=== PATIENT | male | born 1990 | race Caucasian/White ===

== ENCOUNTER 2022-06-30 10:07 | Emergency (ER) | payer MEDICAID, SELFPAY ==
[2022-06-30] VITALS (30 sets, daily range): BP systolic 152–188; BP diastolic 100–118; PULSE 88–111; RESP 18–20; TEMP 36.4; O2SAT 94–100; BMI 29.9
--- NOTE | 2022-06-30 10:31 | CT_ITS ---
WS: [id number] CT ABDOMEN AND PELVIS WITH CONTRAST HISTORY: LLQ abdominal pain, n/v, blood in stool TECHNIQUE: Imaging performed of the abdomen and pelvis with IV contrast. Single phase imaging of the abdomen. Coronal and sagittal reformats are submitted. All CT scans at [facility] use at [address] one of these dose optimization techniques: automated exposure control; mA and/or kV adjustment per patient size (includes targeted exams where dose is matched to clinical indication); or iterative re construction. IV CONTRAST: Omnipaque 350; 100 mL IV. Oral contrast: No DLP: 763.83 mGy.cm COMPARISON: None available. Lower thorax: Lung bases are clear. Heart is normal size. No hiatal hernia. Liver/biliary system: Normal size with no intrahepatic dilatation. Mild focal steatosis along the fal ciform ligament. Gallbladder: Normal. No gallstones or wall thickening. No pericholecystic fluid. Pancreas: Normal size pancreas and pancreatic duct. No adjacent inflammation. Spleen: Normal size spleen. No mass or infarct. Adrenal glands: Normal. Right kidney: Normal. Left kidney: Normal. Aorta: Normal. Lymphadenopathy: None. Free fluid: None. GI tract: Normal appearance of the stomach and small bowel. Normal appendix. No pericolonic inflammat ion. No obstruction or mass. There is some very minimal wall thickening involving the sigmoid colon w ith a few diverticula. The lumen is narrowed. No adjacent pericolonic inflammation. Abdominal wall: Fat containing umbilical hernia. Pelvis: No free fluid or adenopathy within the pelvis. Bones: Unremarkable. CT/CT abdomen pelvis w con* [id number] IMPRESSION: 1. Very mild thickening of the sigmoid colon with no adjacent inflammation. Th ere are a few diverticula. No evidence for acute colitis or diverticulitis. 2. Normal appendix. 3. No abscess or free fluid.
--- NOTE | 2022-06-30 10:39 | ED_ITS ---
Documented by User: RUSSELL Rojo 06/30/22 16:16 HPI - Abdominal Pain General: Chief Complaint: Abdominal Pain Stated Complaint: Lower left abd pain Time Seen by Provider: 06/30/22 10:08 History of Present Illness: Patient is a 32-year-old male comes to the ED with nausea vomiting and abdominal pain. Abdominal pain started approximately 2 months ago and has continued to progress get worse. Abdominal pain is located in the left lower quadrant of abdomen and he rates it currently a 10 out of 10. Says the pain is constant and achy. Any movement of torso or lifting causes worsening pain. He has nausea and vomiting that is worse in the mornings and resolves around noon. He is able to keep p.o. food and fluids down in the afternoon and evening. Endorses occasional loose stools. This morning he noticed his stools had a little bit of red blood in them. He has surgical history of a repaired abdominal hernia as a baby but no other abdominal s urgeries. Denies any fevers, chills, dysuria, hematuria. Associated Symptoms: Reports hematochezia, nausea and vomiting; Denies chills, constipation, diarrhea, dysuria, fever(s) and hematuria Review of Systems Const: Denies: fever(s), chills or fatigue Eyes: Denies: change in vision or eye discomfort ENMT: Denies: throat pain, odynophagia, nasal discharge or nasal congestion Card: Denies: chest pain, palpitations, edema, swelling of feet/ankles, dyspnea on exertion or orthopnea Resp: Denies: dyspnea, productive cough or non-productive cough GI: Reports: abdominal pain, nausea, vomiting and hematochezia; Denies: diarrhea or constipation : Denies: flank pain, difficulty urinating, dysuria or hematuria Musc: Denies: neck pain, back pain or extremity swelling Skin/Breast: Denies: rash or new lesions Neuro: Denies: headache(s), numbness in extremities or weakness in extremities PFS ED PFSH: Medical History No pertinent family history Surgical History History of hernia surgery Social History Current gender identity: Male Physical Exam Const: COMMON NORMALS: no acute distress, patient oriented x3, healthy appearing and alert GENERAL APPEARANCE: cooperative and comfortable HENMT: COMMON NORMALS: normocephalic HEAD & SCALP: normocephalic MOUTH: Normal oral and palatal mucosa present THROAT: posterior oropharynx normal and uvula midline Neck/C-Spine: COMMON NORMALS: supple GENERAL: Yes normal visual inspection Resp: COMMON NORMALS: normal respiratory effort, No retractions, No use of accessory muscles and clear to auscultation bilaterally AUSCULTATION: clear to auscultation bilaterally Cardio: COMMON NORMALS: regular rate, regular rhythm, S1 normal heart sound present, S2 normal heart sound present, No gallops present (Cardio), No clicks present (Cardio), No murmurs present (Cardio) and Peripheral pulses 2+ throughout RATE: regular rate RHYTHM: regular rhythm HEART SOUNDS: S1 normal heart sound present and S2 normal heart sound present PERIPHERAL PUL SES: Peripheral pulses 2+ throughout GI: COMMON NORMALS: Normal to inspection, nondistended, normoactive bowel sounds present, Soft to palpation and no masses PALPATION: Yes Soft to palpation and Yes Tenderness to palpation present (GI) Details: LLQ : COMMON NORMALS: Yes no CVA tenderness BLADDER/KIDNEY EXAM: Yes no CVA tenderness Back/Pelvis: COMMON NORMALS: no CVA tenderness Extremity: COMMON NORMALS: normal to inspection Neuro: COMMON NORMALS: patient oriented x3 SENSORIUM/ORIENTATION: Yes alert GAIT: Yes Normal gait present Skin: GENERAL SKIN EXAM: dry skin Course Vital Signs: Vital signs: Vital Signs Temperature 97.6 F 06/30/22 10:11 Pulse Rate 88 06/30/22 11:31 Respiratory Rate 20 H 06/30/22 11:24 Blood Pressure 152/103 06/30/22 12:25 Pulse Oximetry 97 06/30/22 12:25 Oxygen Delivery Me thod 06/30/22 11:31 MDM - Abdominal Pain Medical Decision Making Patient is a 32-year-old male comes to the ED with nausea vomiting and abdominal pain. Abdominal pain started approximately 2 months ago and has continued to progress get worse. Abdominal pain is located in the left lower quadrant of abdomen and he rates it currently a 10 out of 10. Says the pain is constant and achy. Any movement of torso or lifting causes worsening pain. He has nausea and vomiting that is worse in the mornings and resolves around noon. He is able to keep p.o. food and fluids down in the afternoon and evening. Vital stable. Patient appears nontoxic in no acute distress or pain. He has some left lower quadrant abdominal tenderness but rest of exam is benign. Labs are unremar kable. CT abdomen pelvis shows some mild thickening of sigmoid colon with no adjacent inflammation and no evidence of acute colitis or diverticulitis. He was given 1 L of IV fluids, Zofran and morphine and symptoms improved greatly. Patient diagnosed with abdominal pain and was discharged home with a prescription for Zofran and dicyclomine. Patient does not have a primary care physician so I put a referral in with case management for patient to be set up and establish with a PCP locally. Return to ED precautions given. Patient understood and agreed with plan. Lab Data I reviewed the patient's lab results. : 06/30/22 11:06/30/22 11:22 Labs/Radiology: Radiology Impressions Abdomen/Pelvis CT 06/30/22 10:31 IMPRESSION: 1. Very mild thickening of the sigmoid colon with no adjacent inflammation. There are a few diverticula. No evidence for acute colitis or diverticulitis. 2. Normal appendix. 3. No abscess or free fluid. Laboratory Results WBC 5.6 10^3/uL (4.0-10.0) 06/30/22 11: RBC 4.96 10^6/uL (4.1-5.3) 06/30/22 11:22 Hgb 17.0 g/dL (11.7-16.6) H 06/30/22 11: Hct 48.1 % (42.0-52.0) 06/30/22 11:22 MCV 97.0 fl (80-94) H 06/30/22 11: MCH 34.3 pg (28.0-34.0) H 06/30/22 11: MCHC 35.3 g/dL (30.0-36.0) 06/30/22 11: RDW 12.6 % (12.1-15.1) 06/30/22 11:22 Plt Count 180 10^3/cmm (130-400) 06/30/22 11: MPV 9.7 fL (7.4-10.4) 06/30/22 11: Neut % (Auto) 54.6 % 06/30/22 11: Lymph % (Auto) 34.9 % 06/30/22 11: Foster % (Auto) 8.2 % 06/30/22 11: Eos % (Auto) 1.2 % 06/30/22 11: Baso % (Auto) 0.7 % 06/30/22 11: Neut # (Auto) 3.07 10^3/uL (1.8-7.7) 06/30/22 11: Lymph # (Auto) 2.0 10^3/uL (0.8-4.8) 06/30/22 11: Foster # (Auto) 0.5 10^3/uL (0.2-0.9) 06/30/22 11: Eos # (Auto) 0.1 10^3/uL (0.0-0.8) 06/30/22 11: Baso # (Auto) 0.0 10^3/uL (0.0-0.1) 06/30/22 11: Nucleated RBC % (auto) 0 % 06/30/22 11: Nucleated RBCs # 0.0 /100WBC 06/30/22 11:22 Sodium 138 mmol/L (136-145) 06/30/22 11: Potassium 3.7 mmol/L (3.5-5.1) 06/30/22 11: Chloride 103 mmol/L (98-107) 06/30/22 11: Carbon Dioxide 20 mmol/L (22-29) L 06/30/22 11:22 Anion Gap 18.7 (5-19) 06/30/22 11:22 BUN 9 mg/dL (6-20) 06/30/22 11:22 Creatinine 0.7 mg/dL (0.7-1.2) 06/30/22 11: GFR Calculation 129.1 mL/min (90-130) 06/30/22 11:22 Glucose 90 mg/dL (65-115) 06/30/22 11:22 Calculated Osmolality 284 mOsm/kg (285-295) L 06/30/22 11: Calcium 8.9 mg/dL (8.5-10.5) 06/30/22 11:22 Total Bilirubin 0.7 mg/dL (0.15-1.2) 06/30/22 11: AST 62 U/L (0-40) H 06/30/22 11: ALT 54 U/L (0-41) H 06/30/22 11: Alkaline Phosphatase 82 U/L (40-130) 06/30/22 11: Total Protein 7.0 g/dL (6.6-8.7) 06/30/22 11: Albumin 4.4 g/dL (3.5-5.2) 06/30/22 11: Globulin 2.6 g/dL (1.3-4.6) 06/30/22: Lipase 39 U/L (13-60) 06/30/22: Urine Color Yellow (Yellow) 06/30/22 11:30 Urine Appearance Clear (CLEAR) 06/30/22 11:30 Urine pH 7 (5-7) 06/30/22 11:30 Ur Specific [place] 1.005 (1.005-1.030) 06/30/22 11:30 Urine Protein Trace (Negative) 06/30/22 11:30 Urine Glucose (UA) Norm (Normal) 06/30/22 11:30 Urine Ketones 1+ (Negative) H 06/30/22 11:30 Urine Blood 2+ (Negative) H 06/30/22 11:30 Urine Nitrate Negative (Negative) 06/30/22 11:30 Urine Bilirubin Neg (Negative) 06/30/22 11:30 Urine Urobilinogen Norm mg/dL (Negative) 06/30/22 11:30 Ur Leukocyte Esterase Negative (Negative) 06/30/22 11:30 Urine RBC 0-4 /hpf (0-2) H 06/30/22 11:30 Urine WBC 0-4 /hpf (0-5) H 06/30/22 11:30 Ur Squamous Epith Cells 0-4 /hpf (0-5) H 06/30/22 11:30 Amorphous Sediment Not Reportable 06/30/22 11:30 Urine Bacteria Trace /hpf (NONE) 06/30/22 11:30 Discharge Plan Discharge Patient Disposition: Home Clinical Impression: Abdominal pain Qualifiers: Abdominal location: left lower quadrant Qualified Code(s): R10.32 - Left lower quadrant pain Condition: Stable Prescriptions: New dicyclomine 20 mg tablet 20 mg PO TID PRN (Reason: Abdominal pain and cramping) Qty: 20 0RF ondansetron 4 mg tablet,disintegrating 4 mg PO Q8H PRN (Reason: nausea and vomiting) Qty: 20 0RF Discharge Orders: Discharge ED (Routine); Ordered 06/30/22 Ordered By: Lux Kebede Discharge Diet: Advance as tolerated Discharge Activity: Increase activity as tolerated Patient Instructions: Abdominal Pain (ED) Activity Restrictions/Additional Instructions: Follow-up with medical provider as directed. Case management should be contacted in the next several days set up an appointment with a primary care physician for follow-up. Take medications as prescribed. Return to the ER or your medical provider if condition worsens. Please read and understand discharge instructions. Thank you for choosing [facility] for your healthcare needs today. Please realize this is an emergency room and that we are providing you with a medical screening exam and this may not be complete and all inclusive of all the testing and or work up that you may need to determine your ailment or severity of your illness. It is very important that you follow up as instructed or that you return to the Emergency Department should you have concerns or if your condition changes or worsens in any way. 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 for Chg Fwd Exam Comprehensive Documented by User: Padilla Glynn DO 06/30/22 16:56 HPI - Abdominal Pain General: Chief Complaint: Abdominal Pain Stated Complaint: Lower left abd pain Time Seen by Provider: 06/30/22 10:08 [facility] ED PFSH: Medical History No pertinent family history Surgical History History of hernia surgery Social History Current gender identity: Male Course Vital Signs: Vital signs: Vital Signs Temperature 97.6 F 06/30/22 10:11 Pulse Rate 88 06/30/22 11:31 Respiratory Rate 20 H 06/30/22 11:24 Blood Pressure 152/103 06/30/22 12:25 Pulse Oximetry 97 06/30/22 12:25 Oxygen Delivery Me thod 06/30/22 11:31 MDM - Abdominal Pain Medical Decision Making Patient is a 32-year-old male comes to the ED with nausea vomiting and abdominal pain. Abdominal pain started approximately 2 months ago and has continued to progress get worse. Abdominal pain is located in the left lower quadrant of abdomen and he rates it currently a 10 out of 10. Says the pain is constant and achy. Any movement of torso or lifting causes worsening pain. He has nausea and vomiting that is worse in the mornings and resolves around noon. He is able to keep p.o. food and fluids down in the afternoon and evening. Vital stable. Patient appears nontoxic in no acute distress or pain. He has some left lower quadrant abdominal tenderness but rest of exam is benign. Labs are unremarkable . CT abdomen pelvis shows some mild thickening of sigmoid colon with no adjacent inflammation and no evidence of acute colitis or diverticulitis. He was given 1 L of IV fluids, Zofran and morphine and symptoms improved greatly. Patient diagnosed with abdominal pain and was discharged home with a prescription for Zofran and dicyclomine. Patient does not have a primary care physician so I put a referral in with case management for patient to be set up and establish with a PCP locally. Return to ED precautions given. Patient understood and agreed with plan. Chart reviewed and patient discussed with midlevel. Agree with assessment and plan. Lab Data : 06/30/22 11:06/30/22 11:22 Labs/Radiology: Radiology Impressions Abdomen/Pelvis CT 06/30/22 10:31 IMPRESSION: 1. Very mild thickening of the sigmoid colon with no adjacent inflammation. There are a few diverticula. No evidence for acute colitis or diverticulitis. 2. Normal appendix. 3. No abscess or free fluid. Laboratory Results WBC 5.6 10^3/uL (4.0-10.0) 06/30/22 11:22 RBC 4.96 10^6/uL (4.1-5.3) 06/30/22 11:22 Hgb 17.0 g/dL (11.7-16.6) H 06/30/22 11: Hct 48.1 % (42.0-52.0) 06/30/22 11: MCV 97.0 fl (80-94) H 06/30/22 11:22 MCH 34.3 pg (28.0-34.0) H 06/30/22 11: MCHC 35.3 g/dL (30.0-36.0) 06/30/22 11: RDW 12.6 % (12.1-15.1) 06/30/22 11: Plt Count 180 10^3/cmm (130-400) 06/30/22 11: MPV 9.7 fL (7.4-10.4) 06/30/22 11: Neut % (Auto) 54.6 % 06/30/22 11: Lymph % (Auto) 34.9 % 06/30/22 11: Foster % (Auto) 8.2 % 06/30/22 11: Eos % (Auto) 1.2 % 06/30/22 11: Baso % (Auto) 0.7 % 06/30/22 11: Neut # (Auto) 3.07 10^3/uL (1.8-7.7) 06/30/22 11: Lymph # (Auto) 2.0 10^3/uL (0.8-4.8) 06/30/22 11: Foster # (Auto) 0.5 10^3/uL (0.2-0.9) 06/30/22 11: Eos # (Auto) 0.1 10^3/uL (0.0-0.8) 06/30/22 11: Baso # (Auto) 0.0 10^3/uL (0.0-0.1) 06/30/22 11: Nucleated RBC % (auto) 0 % 06/30/22 11: Nucleated RBCs # 0.0 /100WBC 06/30/22 11: Sodium 138 mmol/L (136-145) 06/30/22 11: Potassium 3.7 mmol/L (3.5-5.1) 06/30/22 11:22 Chloride 103 mmol/L (98-107) 06/30/22 11: Carbon Dioxide 20 mmol/L (22-29) L 06/30/22 11: Anion Gap 18.7 (5-19) 06/30/22 11: BUN 9 mg/dL (6-20) 06/30/22 11: Creatinine 0.7 mg/dL (0.7-1.2) 06/30/22 11: GFR Calculation 129.1 mL/min (90-130) 06/30/22 11: Glucose 90 mg/dL (65-115) 06/30/22 11: Calculated Osmolality 284 mOsm/kg (285-295) L 06/30/22 11: Calcium 8.9 mg/dL (8.5-10.5) 06/30/22: Total Bilirubin 0.7 mg/dL (0.15-1.2) 06/30/22 11: AST 62 U/L (0-40) H 06/30/22: ALT 54 U/L (0-41) H 06/30/22 11: Alkaline Phosphatase 82 U/L (40-130) 06/30/22 11: Total Protein 7.0 g/dL (6.6-8.7) 06/30/22 11: Albumin 4.4 g/dL (3.5-5.2) 06/30/22 11: Globulin 2.6 g/dL (1.3-4.6) 06/30/22 11: Lipase 39 U/L (13-60) 06/30/22 11: Urine Color Yellow (Yellow) 06/30/22 11: Urine Appearance Clear (CLEAR) 06/30/22 11: Urine pH 7 (5-7) 06/30/22 11: Ur Specific [place] 1.005 (1.005-1.030) 06/30/22 11: Urine Protein Trace (Negative) 06/30/22 11: Urine Glucose (UA) Norm (Normal) 06/30/22 11: Urine Ketones 1+ (Negative) H 06/30/22 11: Urine Blood 2+ (Negative) H 06/30/22 11: Urine Nitrate Negative (Negative) 06/30/22 11: Urine Bilirubin Neg (Negative) 06/30/22 11:30 Urine Urobilinogen Norm mg/dL (Negative) 06/30/22 11:30 Ur Leukocyte Esterase Negative (Negative) 06/30/22 11:30 Urine RBC 0-4 /hpf (0-2) H 06/30/22 11:30 Urine WBC 0-4 /hpf (0-5) H 06/30/22 11:30 Ur Squamous Epith Cells 0-4 /hpf (0-5) H 06/30/22 11:30 Amorphous Sediment Not Reportable 06/30/22 11:30 Urine Bacteria Trace /hpf (NONE) 06/30/22 11:30 Discharge Plan Discharge Patient Disposition: Home Clinical Impression: Abdominal pain Qualifiers: Abdominal location: left lower quadrant Qualified Code(s): R10.32 - Left lower quadrant pain Condition: Stable Prescriptions: New dicyclomine 20 mg tablet 20 mg PO TID PRN (Reason: Abdominal pain and cramping) Qty: 20 0RF ondansetron 4 mg tablet,disintegrating 4 mg PO Q8H PRN (Reason: nausea and vomiting) Qty: 20 0RF Discharge Orders: Discharge ED (Routine); Ordered 06/30/22 Ordered By: Lux Kebede Discharge Diet: Advance as tolerated Discharge Activity: Increase activity as tolerated Patient Instructions: Abdominal Pain (ED) Activity Restrictions/Additional Instructions: Follow-up with medical provider as directed. Case management should be contacted in the next several days set up an appointment with a primary care physician for follow-up. Take medications as prescribed. Return to the ER or your medical provider if condition worsens. Please read and understand discharge instructions. Thank you for choosing [facility] for your healthcare needs today. Please realize this is an emergency room and that we are providing you with a medical screening exam and this may not be complete and all inclusive of all the testing and or work up that you may need to determine your ailment or severity of your illness. It is very important that you follow up as instructed or that you return to the Emergency Department should you have concerns or if your condition changes or worsens in any way. 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 for Gloria Fwd Exam Comprehensive
[2022-06-30] MEDS: iohexol 350 mg/mL 100 mL Btl IV (10:45)
[2022-06-30] MEDS: morphine 4 mg/mL SDV 1 mL IVP (11:24)
[2022-06-30] MEDS: ondansetron 2 mg/ML SDV 2 mL 4 MG IVP (11:24)
[2022-06-30] MEDS: sodium chloride 0.9% 1,000 ML 999 ML IV (11:25)
[2022-06-30 11:28] LABS: Basophils % 0.7 %; Eosinophils # 0.1 10^3/uL (0.0-0.8); Eosinophils % 1.2 %; Hematocrit 48.1 % (42.0-52.0); Lymphocytes % 34.9 %; Mean Corpuscular HGB Conc 35.3 g/dL (30.0-36.0); Mean Corpuscular Hemoglobin 34.3 pg (28.0-34.0); Mean Platelet Volume 9.7 fL (7.4-10.4); Monocytes # 0.5 10^3/uL (0.2-0.9); Monocytes % 8.2 %; Neutrophils # 3.07 10^3/uL (1.8-7.7); Neutrophils % 54.6 %; Nucleated Red Blood Cells % 0 %; Platelet Count 180 10^3/cmm (130-400); Red Blood Count 4.96 10^6/uL (4.1-5.3); Red Cell Distribution Width 12.6 % (12.1-15.1); White Blood Count 5.6 10^3/uL (4.0-10.0)
[2022-06-30 11:49] LABS: Alanine Aminotransferase 54 U/L (0-41); Albumin Level 4.4 g/dL (3.5-5.2); Alkaline Phosphatase 82 U/L (40-130); Anion Gap 18.7 (5-19); Aspartate Amino Transferase 62 U/L (0-40); Blood Urea Nitrogen 9 mg/dL (6-20); Calcium 8.9 mg/dL (8.5-10.5); Carbon Dioxide 20 mmol/L (22-29); Chloride 103 mmol/L (98-107); Globulin 2.6 g/dL (1.3-4.6); Glomerular Filtration Rate 129.1 mL/min (90-130); Glucose 90 mg/dL (65-115); Lipase 39 U/L (13-60); Osmolality Calculated 284 mOsm/kg (285-295); Potassium 3.7 mmol/L (3.5-5.1); Sodium 138 mmol/L (136-145); Total Bilirubin 0.7 mg/dL (0.15-1.2)
[2022-06-30 12:05] LABS: Add Urine Microscopic? YES; Bilirubin Urine Neg (Negative); Blood Urine 2+ (Negative); Glucose Urine UA Norm (Normal); Ketones Urine 1+ (Negative); Leukocyte Esterase Urine Negative (Negative); Nitrate Urine Negative (Negative); Protein Urine Trace (Negative); Specific Gravity, Urine 1.005 (1.005-1.030); Urine Appearance Clear (CLEAR); Urine Color Yellow (Yellow); Urobilinogen Urine Norm (Negative); pH Urine 7 (5-7)
[2022-06-30 12:06] LABS: Add Urine Culture? No; Bacteria Urine TRACE /hpf; RBC Urine 0-4 /hpf (0-2); Squamous Epithelial Cell Urine 0-4 /hpf (0-5); WBC Urine 0-4 /hpf (0-5)
--- NOTE | 2022-06-30 15:57 | DCPLANNER ---
Addendum entered by Lashell Thompson 09/18/22 14:35: Patient had a follow up appointment to establish care with Dr. Willingham at [facility] - patient did attend appointment. Original Note: food and beverage assistant manager had message to speak with patient about getting established with a primary care physician. food and beverage assistant manager spoke with patient, he stated that he would like help in getting established with a primary care physician. food and beverage assistant manager called [facility], spoke with Maria Luisa, gave clinic patients information. A follow up appointment was scheduled for June at 1:[address] Willingham. food and beverage assistant manager gave patient the appointment information. Patient stated that he would attend appointment.
== END 2022-06-30 12:31 | disposition home or self-care (01) ==
PROVIDERS: Emergency Provider Physician Assistant
DX: R10.32 Left lower quadrant pain (principal)
CPT/HCPCS: 36415; 74177; 80053; 81001; 83690; 85025; 96361; 96374; 96375; 99285; J2270; J2405; J7030; Q9967

== ENCOUNTER → 2022-07-02 14:11 | Outpatient (BNVA) | payer MEDICAID, SELFPAY | PROVIDERS: Visit Provider Family Medicine | DX: K58.9 Irritable bowel syndrome, unspecified (principal); F10.20 Alcohol dependence, uncomplicated; R03.0 Elevated blood-pressure reading, without diagnosis of hypertension; F32.1 Major depressive disorder, single episode, moderate; R10.9 Unspecified abdominal pain; F12.90 Cannabis use, unspecified, uncomplicated; F17.200 Nicotine dependence, unspecified, uncomplicated; K92.1 Melena; Z71.6 Tobacco abuse counseling; R31.9 Hematuria, unspecified | CPT/HCPCS: 80053; 80061; 81000; 85025 ==

== ENCOUNTER → 2022-07-20 14:24 | Outpatient (BNVA) | payer MEDICAID, SELFPAY | PROVIDERS: Visit Provider Family Medicine | DX: R31.9 Hematuria, unspecified (principal); Z72.51 High risk heterosexual behavior; E78.00 Pure hypercholesterolemia, unspecified; F32.1 Major depressive disorder, single episode, moderate; K58.9 Irritable bowel syndrome, unspecified; R03.0 Elevated blood-pressure reading, without diagnosis of hypertension | CPT/HCPCS: 81000; 87491; 87591; 87806 ==

== ENCOUNTER → 2023-08-10 09:43 | Outpatient (BNVA) | payer MEDICAID, SELFPAY | PROVIDERS: PCP Family Medicine; Visit Provider Nurse Practitioner Family | DX: R50.9 Fever, unspecified (principal); J06.9 Acute upper respiratory infection, unspecified | CPT/HCPCS: 87400 ==

== ENCOUNTER → 2023-09-29 15:58 | Outpatient (BNVA) | payer MEDICAID, SELFPAY | PROVIDERS: PCP Family Medicine; Visit Provider Nurse Practitioner | DX: M23.52 Chronic instability of knee, left knee; M25.361 Other instability, right knee; M25.362 Other instability, left knee | CPT/HCPCS: 73560; 73565; 99204 ==

== ENCOUNTER 2023-12-22 08:08 | Outpatient (CLI) | payer MEDICAID, SELFPAY ==
--- NOTE | 2023-12-22 08:00 | MR_ITS ---
WS: [id number] MRI LEFT KNEE HISTORY: Instability. COMPARISON: Radiograph 09/29/2023 Anterior cruciate ligament: Intact. Posterior cruciate ligament: Intact. Medial collateral ligament: Intact. Posterior lateral corner structures: Intact. Medial menisci: Intact. Normal signal, size and shape. Lateral meniscus: Abnormal T2 signal in the anterior horn extends to the superior and inferior articu lar surfaces consistent with a tear. Posterior horn is negative. Extensor mechanism: Distal quadriceps tendon and patellar tendons are intact. Fluid and soft tissue: Small amount of fluid in the suprapatellar bursa. There is also a moderate siz e Clark's cyst. There is a separate cyst just medial which may be a separate component of the Clark's cyst. This is benign in appearance. Osseous and articular structures: Patellofemoral compartment: Full-thickness cartilage defect at the patellar eminence. Small amount of subchondral marrow edema at the patellar eminence. Medial compartment: Mild narrowing of the medial compartment. Very mild thinning and fissuring of the cartilage. Lateral compartment: Mild narrowing of the lateral compartment with thinning and fissuring of the car tilage. Slightly greater cartilage signal abnormalities anteriorly at the site of the anterior menisc al tear. Large serpiginous area of mixed signal in the distal femoral diaphysis extends over a length of at le ast 3.6 cm. There is an additional similar but smaller marrow lesion in the medial tibial diaphysis. These are most consistent with bone infarcts. IMPRESSION: 1. Focal tear anterior horn of the lateral meniscus extends to both the superior and intra-articular surfaces. 2. Moderate size Clark's cyst. 3. 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 4. Mild narrowing of the medial and lateral compartments. Slightly greater osteochondral injury at t he site of the anterolateral meniscal tear. 5. 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
== END 2023-12-22 08:09 | disposition home or self-care (01) ==
LOC: RAD 08:10
PROVIDERS: PCP Family Medicine; Visit Provider Nurse Practitioner
DX: M25.362 Other instability, left knee (principal); M23.52 Chronic instability of knee, left knee; M25.562 Pain in left knee; G89.29 Other chronic pain; M22.42 Chondromalacia patellae, left knee; S83.282A Other tear of lateral meniscus, current injury, left knee, initial encounter; M71.22 Synovial cyst of popliteal space [Baker], left knee
CPT/HCPCS: 73721

== ENCOUNTER 2023-12-29 07:26 | Emergency (ER) | payer MEDICAID, SELFPAY ==
--- NOTE | 2023-12-29 07:28 | ECG_ITS ---
[facility] Test Date: 2023-12-29 Pat Name: Patrick Mayer Department: Room: Gender: Male [employer]: : [id number] Requested By: Padilla Aguilar Order Number: [id number] Dodie MD: Dylan Jorge M.D. Measurements Intervals [place] Rate: 77 P: 212 OK: 163 QRS: 221 QRSD: 108 T: 160 QT: 404 QTc: 460 Interpretive Statements ECTOPIC ATRIAL RHYTHM INCOMPLETE RIGHT BUNDLE BRANCH BLOCK [90+ ms QRS DURATION, TERMINAL R IN V1/V2, 40+ ms S IN I/aVL/V4/V5/V6] POSSIBLE RIGHT VENTRICULAR HYPERTROPHY [SOME/ALL OF: PROMINENT R IN V1, LATE TRANSITION, RAD, PEDRO, SSS] MODERATE ST DEPRESSION [0.05+ mV ST DEPRESSION] No previous ECG available for comparison Electronically Signed On 12-29-2023 18:38:27 CDT by Dylan Jorge M.D. [email or web address]
--- NOTE | 2023-12-29 07:48 | XRR_ITS ---
PROCEDURE INFORMATION: Exam: XR Chest Exam date and time: 12/29/2023 7:50 AM Age: 33 years old Clinical indication: Pain; Chest pressure; Additional info: Dyspnea/cough TECHNIQUE: Imaging protocol: Radiologic exam of the chest. Views: 1 view. COMPARISON: CT abdomen pelvis w con* [id number] 06/30/2022 10:43 AM FINDINGS: Lungs: Unremarkable. No consolidation. Pleural spaces: Unremarkable. No pleural effusion. No pneumothorax. Heart/Mediastinum: Unremarkable. No cardiomegaly. Bones/joints: Unremarkable. XR/XR chest 1V portable [id number] IMPRESSION: No acute findings.
[2023-12-29 07:50] VITALS: BP 152/99; PULSE 68; RESP 18; TEMP 36.7; O2SAT 95; BMI 30.7
[2023-12-29] MEDS: aspirin 81 mg Chew Tablet 324 MG PO (07:52)
--- NOTE | 2023-12-29 07:56 | ED_ITS ---
HPI - Chest Pain 2 General: Chief Complaint: Chest Pain Stated Complaint: chest pain Time Seen by Provider: 12/29/23 07:48 Source: patient Mode of arrival: ambulatory History of Present Illness: 33-year-old male presents emergency room complaining intermittent left-sided chest pain left arm numbness headache shortness of breath been going on for months. 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 It woke him up this morning from sleep. Substernal left-sided chest pain radiating to the left arm is resolved by the time I see him in the emergency room. He has no known history of any coronary artery disease or arrhythmias. He does have a history of hypertension he is on losartan no recent medication changes. Patient is a smoker. MD complaint: chest pain Associated symptoms: Deny abdominal pain, dyspnea or fever(s) Review of Systems 2 Const: Denies: fever(s) or chills Card: Denies: chest pain Resp: Denies: dyspnea GI: Denies: abdominal pain : Denies: dysuria, urinary frequency or urinary urgency Musc: Denies: neck pain or back pain Skin/Breast: Denies: rash PFSH ED 2 PFSH: Medical History Patellar instability of both knees Recurrent left knee instability Abdominal pain Alcohol use disorder, moderate, dependence Tobacco use disorder, moderate, dependence Surgical History History of hernia surgery Family History Brother Lung disease asthma Cancer testicular Hyperlipidemia Grandfather CAD (coronary artery disease) Cancer lung or lymphoma Hyperlipidemia Stroke Grandmother Dementia Hyperlipidemia Family/Other Diabetes Paternal aunt Father Hyperlipidemia Hypertension Brother Hyperlipidemia Mother Hypertension Denies family history of Clotting disorder Psychiatric illness Chronic kidney disease (CKD) Anesthesia complication Bleeding disorder Social History Smoking and tobacco/nicotine status: current every day tobacco/nicotine user cigarettes Packs smoked per day: 1 Years cigarettes smoked: 20 Quit status (tobacco/nicotine): has quit using Former quit date comment: 07/11 Alcohol intake: current Alcohol intake frequency: few times a week Alcohol type: hard liquor and other Substance/Drug Use: current Substance/Drug use frequency: daily Other substance/drug use details: 4 joint equivalent/day. was previously much more. since 11yo. meth/coke Hx Adopted: No Caregiver/support person: No Lives independently: Yes Marital status: Single Current occupational status: employed Current occupation: [employer] Current occupational exposures/hazards: Yes Do you think of yourself as: Straight/Heterosexual Current gender identity: Male Special tyrone needs: No Agree to transfusion: Yes Physical Exam 2 Const: COMMON NORMALS: no acute distress GENERAL APPEARANCE: cooperative and comfortable ORIENTATION/CONSCIOUSNESS: Yes awake, Yes oriented to person, Yes oriented to place and Yes oriented to time HENMT: COMMON NORMALS: normocephalic, atraumatic and hearing grossly normal bilaterally HEAD & SCALP: normocephalic and atraumatic Resp: COMMON NORMALS: normal respiratory effort, No retractions, No use of accessory muscles and clear to auscultation bilaterally AUSCULTATION: clear to auscultation bilaterally Cardio: COMMON NORMALS: regular rate, regular rhythm and No murmurs present (Cardio) RATE: regular rate RHYTHM: regular rhythm GI: COMMON NORMALS: Soft to palpation and No hepatosplenomegaly present A USCULTATION: Yes normoactive bowel sounds PALPATION: Yes Soft to palpation, No Tenderness to palpation present (GI), No Guarding due to palpation present (GI) and Yes No hepatosplenomegaly present Extremity: COMMON NORMALS: normal to inspection, capillary refill normal, no clubbing, cyanosis or edema, no calf tenderness and no pedal edema Neuro: SENSORIUM/ORIENTATION: Yes oriented to person, Yes oriented to place and Yes oriented to time Skin: COMMON NORMALS: no rashes or lesions noted GENERAL SKIN EXAM: no rashes or lesions noted Course 2 Vital Signs: Vital signs: Vital Signs Temperature 98.1 F 12/29/23 07:50 Pulse Rate 67 12/29/23 11:17 Respiratory Rate 20 H 12/29/23 11:17 Blood Pressure 139/97 12/29/23 11:17 Pulse Oximetry 97 12/29/23 11:17 Oxygen Delivery Me thod Room Air 12/29/23 07:50 MDM - Chest Pain Medical Decision Making Recommended the patient be admitted for alcohol induced pancreatitis with hypertriglyceridemia. Triglycerides nearly 2400. Would talk to the hospitalist to begin rate orders including a insulin drip and glucose via IV. Patient decided he did not want to stay. I had a discussion with him tried to impress upon him the importance of remaining here given this could worsen lead to significantly worsened illness and even . He expresses understanding of this despite these warnings he wishes to leave AGAINST MEDICAL ADVICE encouraged the patient that anytime he could return to the emergency room and we will gladly reevaluate him and treat as appropriate. Encourage abstinence from alcohol as well. Medical Records I reviewed the patient's medical records. Lab Data I reviewed the patient's lab results. 12/29/23 07:58 12/29/23 07:58 Radiology Impressions Chest X-Ray 12/29/23 07:48 IMPRESSION: No acute findings. Laboratory Results WBC 7.23 10^3/uL (3.29-11.43) 12/29/23 07:58 RBC 4.31 10^6/uL (3.85-5.65) 12/29/23 07:58 Hgb 15.80 g/dL (11.27-16.99) 12/29/23 07:58 Hct 42.2 % (37-53) 12/29/23 07:58 MCV 97.9 fl (82-101) 12/29/23 07:58 MCH 36.7 pg (27-33) H 12/29/23 07:58 MCHC 37.4 g/dL (30-55) 12/29/23 07:58 RDW 12.4 % (12.1-15.1) 12/29/23 07:58 Plt Count 156 10^3/cmm (157-399) L 12/29/23 07:58 MPV 9.9 fL (7.4-10.4) 12/29/23 07:58 Neut % (Auto) 37.0 % 12/29/23 07:58 Lymph % (Auto) 53.1 % 12/29/23 07:58 [place] % (Auto) 7.1 % 12/29/23 07:58 Eos % (Auto) 2.1 % 12/29/23 07:58 Baso % (Auto) 0.6 % 12/29/23 07:58 Neut # (Auto) 2.68 10^3/uL (1.8-7.7) 12/29/23 07:58 Lymph # (Auto) 3.8 10^3/uL (0.8-4.8) 12/29/23 07:58 [place] # (Auto) 0.5 10^3/uL (0.2-0.9) 12/29/23 07:58 Eos # (Auto) 0.2 10^3/uL (0.0-0.8) 12/29/23 07:58 Baso # (Auto) 0.0 10^3/uL (0.0-0.1) 12/29/23 07:58 Nucleated RBC % (auto) 0 % 12/29/23 07:58 Nucleated RBCs # 0.0 /100WBC 12/29/23 07:58 Sodium Cancelled 12/29/23 09:12 Potassium Cancelled 12/29/23 09:12 Chloride Cancelled 12/29/23 09:12 Carbon Dioxide Cancelled 12/29/23 09:12 Anion Gap Cancelled 12/29/23 09:12 BUN Cancelled 12/29/23 09:12 Creatinine Cancelled 12/29/23 09:12 GFR Calculation Cancelled 12/29/23 09:12 Glucose Cancelled 12/29/23 09:12 Calculated Osmolality Cancelled 12/29/23 09:12 Calcium Cancelled 12/29/23 09:12 Total Bilirubin Cancelled 12/29/23 09:12 AST Cancelled 12/29/23 09:12 ALT Cancelled 12/29/23 09:12 Alkaline Phosphatase Cancelled 12/29/23 09:12 Troponin T Baseline < 6 ng/L (0-15) 12/29/23 07:58 Troponin T 120 Minute 6.00 ng/L (0-15) 12/29/23 10:05 Delta Troponin T 0.02297 ABS# (0-10) 12/29/23 10:05 Total Protein Cancelled 12/29/23 09:12 Albumin Cancelled 12/29/23 09:12 Globulin Cancelled 12/29/23 09:12 Triglycerides 2399 mg/dL (0-150) H 12/29/23 09:12 LDL Cholesterol Direct 9 mg/dL (0-100) 12/29/23 09:12 Lipase 109 U/L (13-60) H 12/29/23 09:12 Ethyl Alcohol 110 mg/dL (0-10) H 12/29/23 07:58 All radiology interpretation(s) finalized by discharge Discharge Plan Discharge Patient Disposition: Home Clinical Impression: Alcohol use disorder, moderate, dependence, Pancreatitis, alcoholic, acute, Hypertriglyceridemia Condition: Stable Prescriptions: New ondansetron HCl 4 mg tablet 4 mg PO Q6H PRN (Reason: nausea and vomiting) Qty: 20 0RF No Action cyclobenzaprine 10 mg tablet 10 mg PO TID PRN (Reason: muscle spasm) Qty: 15 0RF losartan 100 mg tablet 100 mg PO QAM Discharge Orders: Discharge ED (Routine); Ordered 12/29/23 Ordered By: Padilla Glynn Referrals: Abdiel Ventura MD [Primary Care Provider] - Discharge Diet: Clear Liquid Discharge Activity: Increase activity as tolerated Patient Instructions: Pancreatitis (ED), Alcohol Intoxication (ED), Abuse of Alcohol (ED), Hyperlipidemia (DC), Opioid Safety, Pain Management Activity Restrictions/Additional Instructions: Thank you for choosing [facility] for your healthcare needs today. Please realize this is an emergency room and that we are providing you with a medical screening exam and this may not be complete and all inclusive of all the testing and or work up that you may need to determine your ailment or severity of your illness. It is very important that you follow up as instructed or that you return to the Emergency Department should you have concerns or if your condition changes or worsens in any way. You were seen today with abdominal pain your laboratory test showed pancreatitis likely caused by alcohol use and hypertriglyceridemia. Your triglycerides were critically elevated and we had recommended admission to the hospital to correct. You elected to leave and not be admitted if you change your mind at any time you are welcome to return very important understand that if this infection progresses significantly it could cause severe illness possibly even . You can return at any time we will gladly reevaluate your condition and treat as appropriate. Coding Level of Care Code ED Rn Paralegal for Gloria Nation
[2023-12-29 08:04] LABS: Basophils % 0.6 %; Eosinophils # 0.2 10^3/uL (0.0-0.8); Eosinophils % 2.1 %; Hematocrit 42.2 % (37-53); Lymphocytes # 3.8 10^3/uL (0.8-4.8); Lymphocytes % 53.1 %; Mean Corpuscular HGB Conc 37.4 g/dL (30-55); Mean Corpuscular Hemoglobin 36.7 pg (27-33); Mean Corpuscular Volume 97.9 fl (82-101); Mean Platelet Volume 9.9 fL (7.4-10.4); Monocytes # 0.5 10^3/uL (0.2-0.9); Monocytes % 7.1 %; Neutrophils # 2.68 10^3/uL (1.8-7.7); Nucleated Red Blood Cells % 0 %; Platelet Count 156 10^3/cmm (157-399); Red Blood Count 4.31 10^6/uL (3.85-5.65); Red Cell Distribution Width 12.4 % (12.1-15.1); White Blood Count 7.23 10^3/uL (3.29-11.43)
[2023-12-29] MEDS: lidocaine 2% viscous 15 ML, aluminum-mag hydrox-simethicon 30 ML, sucralfate oral liq 1 GM PO (08:07)
[2023-12-29 08:28] LABS: Troponin(5th) Baseline < 6 ng/L (0-15)
--- NOTE | 2023-12-29 09:53 | ECG_ITS ---
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 Measurements Intervals [place] Rate: 64 P: 0 AK: 162 QRS: -23 QRSD: 110 T: 42 QT: 433 QTc: 448 Interpretive Statements SINUS RHYTHM WITH SINUS ARRHYTHMIA BORDERLINE LEFT AXIS DEVIATION [QRS AXIS < -20] INCOMPLETE RIGHT BUNDLE BRANCH BLOCK [90+ ms QRS DURATION, TERMINAL R IN V1/V2, 40+ ms S IN I/aVL/V4/V5/V6] Compared to ECG 12/29/2023 07:28:04 Ectopic atrial rhythm no longer present Atrial abnormality no longer present ST (T wave) deviation no longer present Electronically Signed On 12-29-2023 18:45:56 CDT by Dylan Jorge M.D. [id number]
[2023-12-29 10:30] LABS: Troponin 5 2HR Delta 0.00001 ABS# (0-10)
[2023-12-29 10:39] LABS: Alkaline Phosphatase 177 U/L (40-130); Blood Urea Nitrogen 17 mg/dL (6-20); Calcium 8.5 mg/dL (8.5-10.5); Carbon Dioxide 20 mmol/L (22-29); Chloride 102 mmol/L (98-107); Creatinine Clr Calc Pharmacy 164.4541; Globulin 2.2 g/dL (1.3-4.6); Glucose 106 mg/dL (65-115); Osmolality Calculated 282 mOsm/kg (285-295); Sodium 135 mmol/L (136-145); Total Bilirubin 0.4 mg/dL (0.15-1.2); Total Protein 6.2 g/dL (6.6-8.7)
[2023-12-29 10:40] LABS: Anion Gap 17.3 (5-19)
[2023-12-29 10:41] LABS: Alanine Aminotransferase 111 U/L (0-41); Aspartate Amino Transferase 236 U/L (0-40); Potassium 4.3 mmol/L (3.5-5.1)
[2023-12-29 10:42] LABS: Lipase 109 U/L (13-60)
[2023-12-29 10:55] LABS: Triglycerides 2399 mg/dL (0-150)
[2023-12-29 11:07] LABS: LDL Cholesterol Direct 9 mg/dL (0-100)
--- NOTE | 2023-12-29 11:10 | CT_ITS ---
WS: [id number] CT ABDOMEN AND PELVIS WITH CONTRAST HISTORY: Pancreatitis TECHNIQUE: Imaging performed of the abdomen and pelvis with IV contrast. Single phase imaging of the abdomen. Coronal and sagittal reformats are submitted. All CT scans at [facility] use at [address] one of these dose optimization techniques: automated exposure control; mA and/or kV adjustment per patient size (includes targeted exams where dose is matched to clinical indication); or iterative re construction. IV CONTRAST: Omnipaque 350; 100 mL IV. Oral contrast: No DLP: 885.75 mGy.cm COMPARISON: 06/30/2022 Lower thorax: Lung bases are clear. Heart is normal size. No hiatal hernia. Liver/biliary system: Moderately enlarged liver with diffuse hepatic steatosis. Normal portal vein. N o mass or bile duct dilatation. Gallbladder: Normal. No gallstones or wall thickening. No pericholecystic fluid. Pancreas: Normal size pancreas and pancreatic duct. No adjacent inflammation. Spleen: Normal size spleen. No mass or infarct. Adrenal glands: Normal. Right kidney: Stable cortical density centrally. No mass. No obstruction. Left kidney: Normal. Aorta: Mild atherosclerosis with no aneurysm. Lymphadenopathy: None. Free fluid: None. GI tract: Stomach is not distended. No small bowel obstruction. Mild diffuse constipation. Normal mar endix. Abdominal wall: Fat containing umbilical hernia. Pelvis: Urinary bladder is well distended. No intraluminal mass. No free fluid or adenopathy. Bones: Unremarkable. IMPRESSION: 1. No acute abdominal or pelvic abnormalities. 2. No imaging evidence for pancreatitis. 3. Negative gallbladder. 4. Moderate hepatic steatosis and hepatomegaly.
[2023-12-29 11:17] VITALS: BP 139/97; PULSE 67; RESP 20; O2SAT 97
[2023-12-29] MEDS: iohexol 350 mg/mL 500 mL Btl (per mL) IV (11:42)
[2023-12-29 11:54] LABS: Alcohol Level 110 mg/dL (0-10)
--- NOTE | 2023-12-29 13:13 | PC.NURSE ---
pt verbalized want to leave AMA to this nurse. Dr. Glynn notified. Dr. Glynn re-educated patient on need for admit and patient results. pt verbalized again for want to leave AMA despite Dr. Glynn's advice.
[2023-12-29 13:18] VITALS: BP 139/97; PULSE 65; RESP 18; O2SAT 97
== END 2023-12-29 13:19 | disposition home or self-care (01) ==
PROVIDERS: Emergency Provider Family Medicine; PCP Family Medicine
DX: F10.20 Alcohol dependence, uncomplicated (principal); K85.20 Alcohol induced acute pancreatitis without necrosis or infection; E78.1 Pure hyperglyceridemia; F17.210 Nicotine dependence, cigarettes, uncomplicated
CPT/HCPCS: 36415; 71045; 74177; 80053; 80307; 83690; 83721; 84478; 84484; 85025; 93005; 99285; Q9967

== ENCOUNTER → 2024-01-06 11:31 | Outpatient (BNVA) | payer MEDICAID, SELFPAY | PROVIDERS: PCP Family Medicine; Visit Provider Family Medicine | DX: K85.20 Alcohol induced acute pancreatitis without necrosis or infection (principal) | CPT/HCPCS: 80053; 83690; 83721; 84478 ==